=== PATIENT | male | born 1995 | race Caucasian/White ===

== ENCOUNTER 2024-12-20 00:40 | Emergency (ER) | payer SELFPAY ==
[~2024-12-20] VITALS: Ht 167.6 cm; Wt 114.3 kg
[2024-12-20 00:45] VITALS: PULSE 120; RESP 20; TEMP 101.6
[2024-12-20] MEDS ORDERED: KETOROLAC TROMETHAMINE 30 MG/ML VIAL IV STA (01:06)
[2024-12-20] MEDS ORDERED: SODIUM CHLORIDE 0.9% 1000ML 1,000 ML IV SCH (01:15)
[2024-12-20] MEDS ORDERED: PAXLOVID 300-11 EAC1 PO (01:23)
[2024-12-20] MEDS ORDERED: MOTRIN800 MG PO (01:23)
[2024-12-20] MEDS: IBUPROFEN 600 MG TAB PO STA (01:23)
[2024-12-20] MEDS: ACETAMINOPHEN 325 MG TAB PO ONE (01:23)
[2024-12-20 01:49] VITALS: PULSE 117; RESP 22; O2SAT 99
== END 2024-12-20 01:18 | disposition home or self-care (01) ==
LOC: FSED 00:54
DX: R50.9 Fever, unspecified (principal); U07.1 COVID-19; H92.02 Otalgia, left ear; R53.81 Other malaise; R94.31 Abnormal electrocardiogram [ECG] [EKG]
CPT/HCPCS: 93005; 99284